=== PATIENT | female | born 1940 | race African-American/Black ===

== ENCOUNTER 2023-12-11 14:25 | Emergency (ER) | payer MEDICARE, OTHER ==
[~2023-12-11] VITALS: Ht 154.9 cm; Wt 60.0 kg
[2023-12-11 14:30] VITALS: TEMP 97.9
[2023-12-11] MEDS ORDERED: SULF-261 PO (17:03)
[2023-12-11] MEDS ORDERED: AMOX-457 PO (17:03)
[2023-12-11 17:05] LABS: GLUCOMETER DEV NAME(LOC) ER.7; GLUCOSE,POINT OF CARE 85 MG/DL (70-110)
[2023-12-11] MEDS: AMOX TR/POT CLAV 875 MG/125 MG TABLET PO ONE (17:22)
[2023-12-11] MEDS: SULFAMETHOX/TRIMETH DS 800-160 MG/TABLET PO ONE (17:22)
[2023-12-11 17:23] VITALS: BP 155/74; PULSE 65; RESP 14; O2SAT 98
== END 2023-12-11 17:34 | disposition home or self-care (01) ==
LOC: EMS 14:25
DX: L03.213 Periorbital cellulitis (principal); E11.9 Type 2 diabetes mellitus without complications; I10 Essential (primary) hypertension; H40.9 Unspecified glaucoma
CPT/HCPCS: 82962; 99283

== ENCOUNTER → 2023-12-13 | Emergency (ER) | payer MEDICARE ==
[~2023-12-13] VITALS: Ht 154.9 cm; Wt 56.8 kg
[~2023-12-13] MED LIST: AMOX-457 PO; SULF-261 PO
[2023-12-13 13:24] VITALS: BP 125/57; PULSE 64; RESP 18; TEMP 98.2; O2SAT 100
== END | disposition still patient (30) ==
LOC: EMS 13:21
DX: Z53.21 Procedure and treatment not carried out due to patient leaving prior to being seen by health care provider (principal)

== ENCOUNTER 2024-12-09 23:14 | Inpatient (IN) | payer MEDICARE, OTHER ==
[~2024-12-09] VITALS: Ht 149.9 cm; Wt 59.1 kg
[2024-12-10 01:16] LABS: PLATELET COUNT (AUTO) 288 K/uL (150-450); RED BLOOD CELL COUNT(AUTO) 4.18 MIL/uL (4.00-5.20); RED CELL DISTRIBUTION WIDTH 14.1 % (11.5-14.5); WHITE BLOOD COUNT (AUTO) 10.2 K/uL (4.5-11.0)
[2024-12-10 01:24] LABS: CALCIUM, TOTAL 8.9 mg/dL (8.8-10.5); CREATININE 0.82 mg/dL (0.60-1.30); GLOMERULAR FILTR. RATE CALC > 60 mL/min (>60); GLUCOSE,RANDOM 104 mg/dL (70-110); SODIUM SERUM 140 mmol/L (136-145); UREA NITROGEN, BLOOD 16 mg/dL (7-18)
[2024-12-10 01:30] LABS: CREATINE KINASE, TOTAL ONLY 54 U/L (26-192)
[2024-12-10] MEDS ORDERED: ACETAMINOPHEN 325 MG TABLET PO PRN (01:30)
[2024-12-10] MEDS ORDERED: OxyCODONE HCL/ACETAMINOPHEN 5-325 MG TABLET PO PRN (01:30)
[2024-12-10] MEDS ORDERED: ONDANSETRON HCL 4 MG/2 ML VIAL IVP PRN (01:30)
[2024-12-10] MEDS ORDERED: MAGNESIUM HYDROXIDE SUSPENSION 30 ML UDCUP PO PRN (01:30)
[2024-12-10 01:56] LABS: TROPONIN I-HIGH SENSITIVITY 9 ng/L (<51)
[2024-12-10] MEDS: IBUPROFEN 400 MG TABLET PO ONE (01:59)
[2024-12-10] MEDS ORDERED: HEPARIN SODIUM,PORCINE 5,000 UNITS/ML VIAL SQ SCH ×2 (08:00→16:00)
[2024-12-10 08:35] LABS: APPEARANCE,URINE CLEAR (CLEAR); GLUCOSE, URINE (UA) NEGATIVE (NEGATIVE); LEUKOCYTE ESTERASE ,URINE NEGATIVE (NEGATIVE); NITRATE,URINE NEGATIVE (NEGATIVE); OCCULT BLOOD,URINE NEGATIVE (NEGATIVE); SPECIFIC GRAVITIY, URINE 1.010 (1.003-1.030)
[2024-12-10] MEDS ORDERED: DOCUSATE SODIUM 100 MG CAPSULE PO SCH ×2 (09:00→21:00)
[2024-12-10] MEDS: FAMOTIDINE 20 MG TABLET PO SCH (09:45)
[2024-12-10 10:28] VITALS: BP 146/77; PULSE 65; RESP 20; TEMP 97.7; O2SAT 97
[2024-12-10 11:50] VITALS: BP 125/70; PULSE 61; RESP 18; TEMP 98.4; O2SAT 99
[2024-12-10 13:30] LABS: GLUCOMETER DEV NAME(LOC) 5S.1D; GLUCOSE,POINT OF CARE 129 MG/DL (70-110)
[2024-12-10 16:05] VITALS: BP 126/76; PULSE 56; RESP 18; TEMP 98.1; O2SAT 98
[2024-12-10 19:29] VITALS: BP 136/76; PULSE 59; RESP 18; TEMP 98.2; O2SAT 96
[2024-12-10 23:01] VITALS: BP 146/77; PULSE 53; RESP 18; TEMP 98.2; O2SAT 96
[2024-12-11 03:33] VITALS: BP 146/80; PULSE 53; RESP 18; TEMP 98.2; O2SAT 96
[2024-12-11 07:12] VITALS: BP 144/81; PULSE 60; RESP 16; TEMP 98.2; O2SAT 96
[2024-12-11] MEDS ORDERED: AMLO-257 PO (10:08)
[2024-12-11 11:27] VITALS: BP 133/60; PULSE 60; RESP 18; TEMP 98.8; O2SAT 99
== END 2024-12-11 15:30 | disposition home or self-care (01) | DRG 305 ==
LOC: EMS 12-10 → EDH 12-10 01:26 → 5N 12-10 08:30
PROVIDERS: ADMIT Internal Medicine; ATTEND Internal Medicine
DX: I16.0 Hypertensive urgency (principal); I10 Essential (primary) hypertension; E11.9 Type 2 diabetes mellitus without complications; Z79.899 Other long term (current) drug therapy; S16.1XXA Strain of muscle, fascia and tendon at neck level, initial encounter
CPT/HCPCS: 71045; 72040; 80048; 81003; 82550; 82962; 83880; 84484; 85025; 85610; 85730; 93005; 97166; 97535; 99285; 36415-L1; 36415-TC